=== PATIENT | female | born 1975 | race Caucasian/White ===

== ENCOUNTER 2022-03-30 04:16 | Day surgery (SDC) | payer BC ==
[2022-03-28 10:40] VITALS: BMI 31.6
[2022-03-30] MEDS ORDERED: PROPOFOL 20 ML ONE ×3 (12:43)
[2022-03-30] MEDS ORDERED: SUCCINYLCHOLINE CHLORIDE 200 MG/10 ML SYRINGE ONE (12:44)
[2022-03-30] MEDS ORDERED: GLYCOPYRROLATE 0.2 MG/1 ML VIAL ONE (12:55)
[2022-03-30] MEDS ORDERED: LACTATED RINGERS SOLUTION 1,000 ML IV SCH (14:00)
[2022-03-30 15:32] VITALS: BP 125/76; PULSE 75; TEMP 97.8
== END 2022-03-30 15:36 | disposition home or self-care (01) ==
LOC: JASU-SURG 04:16
PROVIDERS: ATTEND Otolaryngology
PROC: 0WJQ8ZZ Inspection of Respiratory Tract, Via Natural or Artificial Opening Endoscopic Approach (ICD-10-PCS; principal; 2022-03-30 14:00)
DX: G47.33 Obstructive sleep apnea (adult) (pediatric) (principal)
CPT/HCPCS: 81025; 94760